=== PATIENT | male | born 1945 | race Caucasian/White ===

== ENCOUNTER 2016-12-27 10:19 | Inpatient (IN) | payer MEDICARE, OTHER ==
[~2016-12-27] VITALS: Ht 182.9 cm; Wt 121.8 kg
[2016-12-27 10:28] VITALS: BP 223/106; PULSE 66; RESP 16; O2SAT 97
--- NOTE | 2016-12-27 10:55 | ED.REPORT ---
HPI- Male Date of Service Dec 27, 2016 ED Provider: History of Present Illness: started 1 week ago, went horseback riding and pain around anus has been present since riding. no drainage. had abscess at same site 5 years ago. opened by general surgery no drainage but increased a few days later. came to ER then and placed on bactrim. resolved. primary care is audelia mora. pain is 0 at rest, 2 at walking. Nursing Notes Stated Complaint: ABSCESS Chief Complaint: General Complaint Nursing Notes Reviewed: Yes Allergies: Coded Allergies: No Known Allergies (Unverified Allergy, Unknown, 12/27/16) General Time Seen by MD: 10:55 Chief Complaint Other (fistula vs abscess) Hx Obtained From: Patient Onset Occurred: 1 week ago Symptom Duration: Since onset Past Medical History Past Medical History Denies: Asthma, Diabetes mellitus Past Surgical History triple bypass 16 years ago Smoking History Never Smoker Social History Alcohol Use: "Social" Drug Use: Denies drug use Occupation lives with 3 story house retired 12/27/2016 Ambulatory Status Independent Review of Systems Basic Review of Systems Eyes: Vision NL, No discharge Hematologic: No bleeding, No bruising Psychiatric: Normal thought content Physical Exam Physical Exam Notes: patient reports a long hx of white coat hypertension. Stes has checked blood pressure many times, normal when not in an office. Initial Vital Signs Vital Signs (First) Date Time Temp Pulse Resp B/P Pulse Ox O2 Delivery O2 Flow Rate FiO2 12/27/16 10:28 36 66 16 223/106 97 Room Air Initial VS: Reviewed, Vital signs abnormal General/Constitutional: Well-developed, Well-nourished Head / Eyes: Atraumatic, Normocephalic, PERRL ENT: Mucous membranes moist, Conjunctiva normal, No scleral icterus Neck: Supple, Non-tender, Full range of motion Respiratory: Breath sounds normal, Clear to auscultation, No respiratory distress Cardiovascular: Regular rate & rhythm, Heart sounds normal, Intact distal pulses Abdomen / GI: Soft, Non-tender, No guarding, No rebound, No distention Back: No CVA tenderness Lymphatic: No lymphadenopathy Extremities: Vascular intact, Neuro intact, No swelling, No tenderness Skin: Warm, Dry, No cyanosis Neurologic: Alert, Oriented, Nonfocal Psychiatric: Mood/affect normal, Behavior normal, Normal thought content Perineum: Positive: Erythema present, Swelling present, Tenderness present hard palpable site anterior to anus General/Constitutional: Awake, Alert, No acute distress, Well appearing, Well developed, Well hydrated Abdomen: Atraumatic, Soft, Non-tender, McBurney's non-tender ENT: Atraumatic, Airway patent, Mucous membranes moist Respiratory / Chest: Atraumatic, Breath sounds NL, Breath sounds = bilat, No respiratory distress Cardiovascular: Heart rate NL, Regular rhythm, Heart sounds NL Rectum / Perineum: Sphincter tone NL hard palpable site anterior to anus with what appears to streaking to anus on right side. Interpretation & Diagnostics Interpretation & Diagnostics: PROCEDURE: US EXTREMITY SONOGRAM LIMITED (35605) INDICATIONS: perianal abscess, R or L side, plz danis site TECHNIQUE: Real-time scanning was performed of the perirectal , with image documentation. COMPARISON: [facility], CT, CT ABD PELVIS W CON, 12/27/2016, 14:17. FINDINGS: A at the site marked with an X. on the skin at approximately 1 cm beneath the surface of the skin is a 5 x 3 x 2 cm area of hypoechoic substance thought to be complex fluid, likely an abscess. Usual prominent vasculature however is seen around an abscess is not reciated. IMPRESSION: Complex fluid, suspected to be abscess but without the prominent blood flow usually seen. This is marked in the midline just posterior to the rectum. Dictated by: John Paul Stanford M.D. on 12/27/2016 at 19:02 Approved by: John Paul Stanford M.D. on 12/27/2016 at 19:05 Lab Results Interpretation Result Diagram: 12/27/16 1125 12/27/16 1125 Test 12/27/16 11:25 White Blood Count 12.3th/mm3 (3.8-10.1) Red Blood Count 5.12mil/mm3 (4.40-5.80) Hemoglobin 16.4g/dL (13.8-17.2) Hematocrit 47.3% (41.0-50.0) Mean Corpuscular Volume 92.4fL (81-100) Mean Corpuscular Hemoglobin 32.0pg (27.0-35.0) Mean Corpuscular Hemoglobin Concent 34.7% (32.0-37.0) Red Cell Distribution Width 12.6% (12.3-15.4) Platelet Count 222bil/L (150-400) Neutrophils (%) (Auto) 82.2% (40-74) Lymphocytes (%) (Auto) 7.6% (14-46) Monocytes (%) (Auto) 9.4% (4-12) Eosinophils (%) (Auto) 0.3% (0-5) Basophils (%) (Auto) 0.2% (0-3) Sodium Level 139mEq/L (134-144) Potassium Level 4.2mEq/L (3.5-5.2) Chloride Level 103mEq/L (97-108) Carbon Dioxide Level 24mmol/L (18-29) Blood Urea Nitrogen 18mg/dL (8-27) Creatinine 0.81mg/dL (0.76-1.27) Estimat Glomerular Filtration Rate 100mL/min (>59) Glucose Level 123mg/dL (60-99) Lactic Acid Level 1.2mmol/L (0.4-2.0) Calcium Level 9.2mg/dL (8.5-10.1) Total Bilirubin 1.0mg/dL (0.0-1.2) Aspartate Amino Transf (AST/SGOT) 18U/L (0-50) Alanine Aminotransferase (ALT/SGPT) 30U/L (0-44) Alkaline Phosphatase 84U/L (25-160) Total Protein 6.4g/dL (6.4-8.4) Albumin 4.0g/dL (3.4-5.0) Lab Results Interpretation: TECHNIQUE: After the administration of oral and intravenous contrast, 5 mm thick sections acquired from the diaphragms to the symphysis. 5 mm thick coronal and sagittal reformats were performed. For radiation dose reduction, the following was used: automated exposure control, adjustment of mA and/or kV according to patient size. COMPARISON: [facility], CT, PELVIS W CONTRAST, 08/16/2010, 12:39. FINDINGS: Image quality: Excellent. ABDOMEN: Lung bases: Lung bases are clear. Heart size is normal. Solid organs: Liver and spleen are normal in size and enhancement. There are 2 cysts in the left lobe of the liver and 2 small areas too small to characterize inferiorly in the right lobe, likely cysts. Gallbladder is within normal limits. Biliary system is non-dilated. Pancreas enhances normally there is a 12 mm right and 10 mm left adrenal nodule.. Kidneys are normal in size and enhancement, without hydronephrosis. Peritoneum and bowel: Stomach, small bowel, and colon loops are normal in caliber and wall thickness. No free fluid or air. Nodes and vessels: No retroperitoneal or mesenteric adenopathy. Aorta and inferior vena cava are normal in caliber. Miscellaneous: No ventral hernias. PELVIS: Genitourinary: Bladder wall thickness is normal. Mild prostate enlargement. Miscellaneous: No inguinal hernias or adenopathy. Just posterior to the rectum in the midline is a fluid collection that appears to be suspicious for potential abscess. It measures 42 x 14 x 40 mm. Bones: No suspicious bony lesions. No vertebral body compression fractures. IMPRESSION: Fluid collection just posterior to the rectum. A perirectal abscess is suspected. Bilateral small adrenal nodules of doubtful significance. Hepatic cysts. Dictated by: John Paul Stanford M.D. on 12/27/2016 at 14:23 Approved by: John Paul Stanford M.D. on 12/27/2016 at 14:31 Re-Eval/Medical Decision Med Decision/Clinical Course 71 year old male present to the ER for evualation of pain around the anus. Pain has been ongoing for a week, starting after horseback riding. Patient states had similiar episode [address] does indicate an abscess. Dr. Marti is notified and he presents to the ER with plans to aspirate. Unable to get any fluid out. . Initially patient was to go home but now will stay with OR intervention planned for tomorrow. Discharge & Departure Impression: Primary Impression: Perirectal abscess Disposition: ADMITTED TO HOSPITAL Referrals: Audelia Mora MD (PCP) EDSupervising Provider for APC: Jose Mckeon MD copies to: Audelia Mora MD, Sue ARNP Dec 27, 2016 10:55
[2016-12-27] MEDS ORDERED: 0.9% Sodium Chloride 1,000 ML IV ONE ×2 (11:10→17:25)
[2016-12-27] MEDS ORDERED: Iohexol 300 mg/mL 30 mL Inj PO ONE (11:20)
[2016-12-27 11:40] LABS: BASOPHILS % (AUTO) 0.2 % (0-3); EOSINOPHILS % (AUTO) 0.3 % (0-5); MONOCYTES % (AUTO) 9.4 % (4-12); Mean Corpuscular Volume 92.4 fL (81-100); NEUTROPHILS % (AUTO) 82.2 % (40-74); Platelet Count 222 bil/L (150-400)
--- NOTE | 2016-12-27 14:33 | DRSVH ---
PROCEDURE: CT ABDOMEN AND PELVIS WITH CONTRAST (PNL-7102) INDICATIONS: abscess vs anal fistula TECHNIQUE: After the administration of oral and intravenous contrast, 5 mm thick sections acquired from the diap hragms to the symphysis. 5 mm thick coronal and sagittal reformats were performed. For radiation do se reduction, the following was used: automated exposure control, adjustment of mA and/or kV accordi ng to patient size. COMPARISON: [facility], CT, PELVIS W CONTRAST, 08/16/2010, 12:39. FINDINGS: Image quality: Excellent. ABDOMEN: Lung bases: Lung bases are clear. Heart size is normal. Solid organs: Liver and spleen are normal in size and enhancement. There are 2 cysts in the left lo be of the liver and 2 small areas too small to characterize inferiorly in the right lobe, likely cyst s. Gallbladder is within normal limits. Biliary system is non-dilated. Pancreas enhances normally t here is a 12 mm right and 10 mm left adrenal nodule.. Kidneys are normal in size and enhancement, wi thout hydronephrosis. Peritoneum and bowel: Stomach, small bowel, and colon loops are normal in caliber and wall thickness . No free fluid or air. Nodes and vessels: No retroperitoneal or mesenteric adenopathy. Aorta and inferior vena cava are no rmal in caliber. Miscellaneous: No ventral hernias. PELVIS: Genitourinary: Bladder wall thickness is normal. Mild prostate enlargement. Miscellaneous: No inguinal hernias or adenopathy. Just posterior to the rectum in the midline is a f luid collection that appears to be suspicious for potential abscess. It measures 42 x 14 x 40 mm. Bones: No suspicious bony lesions. No vertebral body compression fractures. IMPRESSION: Fluid collection just posterior to the rectum. A perirectal abscess is suspected. Bilateral small adrenal nodules of doubtful significance. Hepatic cysts. Dictated by: John Paul Stanford M.D. on 12/27/2016 at 14:23 Approved by: John Paul Stanford M.D. on 12/27/2016 at 14:31
[2016-12-27] MEDS ORDERED: Lidocaine 2%-Epi 1:100,000 20 mL Inj ONE (14:44)
[2016-12-27] MEDS ORDERED: Clindamycin Inj 900 MG in IV Premix 1 EACH IV ONE (17:25)
[2016-12-27] MEDS ORDERED: metroNIDAZOLE Inj 1,000 MG in IV Premix 1 EACH IV ONE (17:25)
[2016-12-27] MEDS ORDERED: Alum-Mag Hydrox-Simeth 30 mL Suspension PO PRN (18:15)
[2016-12-27] MEDS ORDERED: Ondansetron 2 mg/mL 2 mL Inj IVPUSH PRN ×2 (18:15→18:30)
[2016-12-27] MEDS: Vancomycin Dose per Pharmacist XX SCH (18:25)
--- NOTE | 2016-12-27 18:27 | ER ---
[address] [address] EMERGENCY DEPARTMENT REPORT PATIENT: EUGENIO VO : 1945 MR#: [id number] ADMIT: 12/27/2016 JOB ID: [id number] DATE OF SERVICE: 12/27/2016 CHIEF COMPLAINT: Perirectal abscess. HISTORY OF PRESENT ILLNESS: The patient is a 71-year-old male who presented to the emergency department today due to perirectal discomfort. Patient reports riding horseback approximately a week ago. This was followed by gradual increasing discomfort in the perianal region, feels like he's sitting on a golf ball. The patient has a history of perianal abscess approximately five years ago. The patient went to [facility] and it was I and D'd by a general surgeon but no drainage was encountered. However , it spontaneously drained a few days later. The patient was treated with Bactrim at the time and it gradually resolved. Workup in the emergency department today showed an elevated white blood count of 12.[address] scan finding that shows a fluid collection posterior to the rectum measuring 42 x14 x 40 mm. A perirectal abscess is suspected. Discussion with the patient as to taking him to the operating room for examination under anesthesia and possible I and D. However, he declined and wanted to have aspiration done in the emergency department. PAST MEDICAL HISTORY: Perianal abscess five years ago and history of CABG. MEDICATIONS: Include: 1. Atenolol. 2. A cholesterol medication. ALLERGIES: None. SOCIAL HISTORY: The patient is a retired dentist. He lives in the [place] area. He is , has four children. FAMILY HISTORY: Positive for colon cancer. REVIEW OF SYSTEMS: Positive for the perirectal pain for the past week or so. PHYSICAL EXAMINATION: The patient is currently in the emergency department [facility] in no acute distress. His BMI is 35.3. His blood pressure is 36, blood pressure 223/106. Pulse is 66, respirations 16. Head is normocephalic, atraumatic. There is no scleral icterus. Neck is supple. Heart is regular rate. Lungs are clear. Abdomen is obese, but soft and nontender. Extremities show no clubbing and no cyanosis. The examination of his perianal region shows induration along the right anterior as well as the left anterior aspect of the anus. There is no tenderness to the posterior aspect of the anus. There is no obvious drainage and no clear erythema. The patient is slightly tender along the indurated area of the right anterior and left anterior aspect of the anus. Digital exam did not show any palpable masses. PROCEDURE: After informed consent, we proceeded to perform aspiration. The perianal region was then prepped and draped in the usual sterile fashion using Betadine. Local anesthetic was injected and using an 18-gauge needle, multiple aspirations of the right anterior and left anterior aspect of the perianal region were performed without successfully hitting an abscess cavity. After multiple aspiration attempts, the procedure was terminated. Patient tolerated the procedure well. No incision and drainage was performed in the ED. ASSESSMENT: This is a 71-year-old male with a history of perianal abscess five years ago, who now has a recurrent perianal or perirectal abscess. The patient was offered hospitalization with IV antibiotics and also an examination under anesthesia in the operating room. The patient has declined. I will talk to Brittany Peña about his case. We will have the patient do sitz baths and get him started on p.o. antibiotics. The patient is encouraged to return for a recheck in the next 1-2 days. Again, I did offer to take him to the operating room for a better examination under anesthesia. However, he has currently declined. After additional discussion, pt finally agreed to be admitted. We will proceed to examination under anesthesia tomorrow. MARISA
[2016-12-27] MEDS ORDERED: HYDROmorphone 1 mg/mL Inj IVPUSH PRN (18:30)
[2016-12-27] MEDS ORDERED: Vancomycin Inj 2,250 MG in 0.9% Sodium Chloride 500 ML IV ONE (18:35)
--- NOTE | 2016-12-27 18:56 | PCM.HPMED ---
Subjective Date of Service Dec 27, 2016 Primary Provider: Admitting Physician: Timothy Crooks MD Primary Care Physician: Audelia Mora MD Attending Physician: Timothy Crooks MD Chief Complaint: Perirectal pain History of Present Illness: 79-year-old male with no significant past history, CABG 16 years ago, had full cardiac workup year ago her normal, history of perirectal abscess 5 years ago, patient required I&D, treated with Bactrim. pt presented today with perirectal swelling and pain. Patient went to horseback riding a week ago, since then started having perirectal pain and swelling, progressively worsened. he denied fever, chills at home, denied any changes of bowel habits. Having regular stools, denied bloody or black stools ever. Patient had good appetite no nausea or vomiting. Denied any urinary complaints, no stool incontinence. Patient denied sick contact, MSM. 5yrs ago, etiology was also unclear as to why pt developed abscess ED initial VS [id number], CT showed fluid collection just posterior to the rectum, suspected perirectal abscess. Surgery was consulted attempted bedside aspiration but failed to obtained sample or drainage. Recommended I&D in OR tomorrow Review of Systems: Pertinent positives as noted in history of present illness. All other systems were reviewed and are negative Allergies Coded Allergies: No Known Allergies (Unverified Allergy, Unknown, 12/27/16) Home Medications No active medicine PMH Hypertension white coat Surgical History CABG 16 years ago, no complication from surgery or anesthesia Family History No history of CAD Social History Hx Alcohol Use: Yes (A LITTLE BIT ) Hx Substance Use: Yes (OCCASIOINAL) Smoking Status: Never Smoker Exam Vital Signs Vital Sign - Last Date Time Temp Pulse Resp B/P Pulse Ox O2 Delivery O2 Flow Rate FiO2 12/27/16 10:28 36 66 16 223/106 97 Room Air Exam NAD, comfortably laying down on the bed no JVD, MMM, no LAD RRR, nl s1, s2 no mrg CTAB, no w,c S,ND,NT,normoactive BS+ warm, no edema, pulses 2/2 recta: swelling, tender no fluctuance around 7oclock Lab and Diagnostics Result Diagram: 12/27/16 1125 12/27/16 1125 X-Rays, CTs and MRIs PROCEDURE: CT ABDOMEN AND PELVIS WITH CONTRAST ([id number]) INDICATIONS: abscess vs anal fistula TECHNIQUE: After the administration of oral and intravenous contrast, 5 mm thick sections acquired from the diaphragms to the symphysis. 5 mm thick coronal and sagittal reformats were performed. For radiation dose reduction, the following was used : automated exposure control, adjustment of mA and/or kV according to patient size. COMPARISON: [facility], CT, PELVIS W CONTRAST, 08/16/2010, 12: 39. FINDINGS: Image quality: Excellent. ABDOMEN: Lung bases: Lung bases are clear. Heart size is normal. Solid organs: Liver and spleen are normal in size and enhancement. There are 2 cysts in the left lobe of the liver and 2 small areas too small to characterize inferiorly in the right lobe, likely cysts. Gallbladder is within normal limits. Biliary system is non-dilated. Pancreas enhances normally there is a 12 mm right and 10 mm left adrenal nodule.. Kidneys are normal in size and enhancement, without hydronephrosis. Peritoneum and bowel: Stomach, small bowel, and colon loops are normal in caliber and wall thickness. No free fluid or air. Nodes and vessels: No retroperitoneal or mesenteric adenopathy. Aorta and inferior vena cava are normal in caliber. Miscellaneous: No ventral hernias. PELVIS: Genitourinary: Bladder wall thickness is normal. Mild prostate enlargement. Miscellaneous: No inguinal hernias or adenopathy. Just posterior to the rectum in the midline is a fluid collection that appears to be suspicious for potential abscess. It measures 42 x 14 x 40 mm. Bones: No suspicious bony lesions. No vertebral body compression fractures. IMPRESSION: Fluid collection just posterior to the rectum. A perirectal abscess is suspected. Bilateral small adrenal nodules of doubtful significance. Hepatic cysts. Assessment & Plan Acute, active Perirectal abscess, triggered by episode of horseback riding, possibley due to minor skin injury. no SIRS, pt appeared nontoxic -appreciate surgical management -s/p clindamycin, flagyl, will continue flagyl and vancomycin, should cover anaerobes, strep, staph, -trend fever curve, awaits BCX, -MRSA swab elevated HTN, likely due to whitecoat, pain, diet controlled at baseline -monitor for now chronic,stable CAD s/p CABG, remote, stable, euvolemic on exam dispo:Patient will be admitted with inpatient status with expectation of inpatient therapy for more than 2 midnights diet:general, NPO after MN dvt ppx:SCD Full code Time spent 65min Jessica Nolan MD Dec 27, 2016 18:55
--- NOTE | 2016-12-27 19:06 | DRSVH ---
PROCEDURE: US EXTREMITY SONOGRAM LIMITED (83170) INDICATIONS: perianal abscess, R or L side, plz danis site TECHNIQUE: Real-time scanning was performed of the perirectal , with image documentation. COMPARISON: [facility], CT, CT ABD PELVIS W CON, 12/27/2016, 14:17. FINDINGS: A at the site marked with an X. on the skin at approximately 1 cm beneath the surface of th e skin is a 5 x 3 x 2 cm area of hypoechoic substance thought to be complex fluid, likely an abscess. Usual prominent vasculature however is seen around an abscess is not reciated. IMPRESSION: Complex fluid, suspected to be abscess but without the prominent blood flow usually seen. This is marked in the midline just posterior to the rectum. Dictated by: John Paul Stanford M.D. on 12/27/2016 at 19:02 Approved by: John Paul Stanford M.D. on 12/27/2016 at 19:05
[2016-12-27 19:11] VITALS: BP 149/75; PULSE 66; RESP 16; O2SAT 97
[2016-12-27 19:34] VITALS: BP 168/84; PULSE 73; RESP 18; O2SAT 97
[2016-12-27] MEDS ORDERED: ALPR0.25 PO (22:31)
[2016-12-27] MEDS ORDERED: ATEN25TA PO (22:31)
[2016-12-27] MEDS ORDERED: ASPI-973 PO (22:31)
[2016-12-27] MEDS ORDERED: EZET1TAB7 PO (22:31)
[2016-12-27] MEDS ORDERED: LISI40TA PO (22:31)
--- NOTE | 2016-12-27 22:49 | PCM.CONPHA ---
Assessment/Plan Assessment/Plan Pharmacy Kinetic Dosing Vancomycin Indication: PERORECTAL ABSCESS Vanc goal trough: 15-20 mcg/mL Pt wt: 118.18 kg Other ABX: FLAGYL Cultures: Blood PENDING SCr: 0.81 mg/dL Assessment/Plan: - Loading dose of Vancomycin 2250 mg given in ED for (20 mg/kg dosing) -Will continue Vancomycin 1750 mg Q12H (15 mg/kg dosing) with trough scheduled prior to 4th dose on 12/29/16 @0930 Pharmacy appreciates consult and will continue to monitor. Caren Toro PharmD Dec 27, 2016 22:49
[2016-12-28] VITALS (10 sets, daily range): BP systolic 127–163; BP diastolic 73–88; PULSE 59–89; RESP 10–20; O2SAT 95–100
[2016-12-28] MEDS: metroNIDAZOLE Inj 1,000 MG in IV Premix 1 EACH IV SCH ×2 (02:01→07:53)
--- NOTE | 2016-12-28 03:46 | NUR ---
Admit Patient arrived on unit at 1900, able to transfer self on to bed. A&O, able to make needs known. Oriented to room, ABX hanging. Pharmacy insuring that second ABX bag be hung. All belongings placed in closet. Denies pain at this time. Will continue to monitor
[2016-12-28 03:50] LABS: BASOPHILS % (AUTO) 0.3 % (0-3); EOSINOPHILS % (AUTO) 0.9 % (0-5); MONOCYTES % (AUTO) 11.7 % (4-12); Mean Corpuscular Hemoglobin 32.3 pg (27.0-35.0); Mean Corpuscular Volume 93.3 fL (81-100); NEUTROPHILS % (AUTO) 72.8 % (40-74); Platelet Count 198 bil/L (150-400)
[2016-12-28 04:23] LABS: Magnesium 1.8 mg/dL (1.6-2.6); Phosphorus 3.6 mg/dL (2.5-4.9)
[2016-12-28] MEDS: Vancomycin Dose per Pharmacist XX SCH (08:30)
[2016-12-28] MEDS ORDERED: metroNIDAZOLE Inj 1,000 MG in IV Premix 1 EACH IV SCH (08:30)
--- NOTE | 2016-12-28 09:29 | PCM.PNMED ---
Subjective Date of Service Dec 28, 2016 Subjective pt remained stable tentative plan for surgery by today US showed complex fluid 5 x 3 x 2 cm 1cm beneath the skin Exam Vital Signs Vital Sign - Last Date Time Temp Pulse Resp B/P Pulse Ox O2 Delivery O2 Flow Rate FiO2 12/28/16 06:15 36.9 89 16 141/79 96 Room Air Intake and Output 12/27/16 12/27/16 12/28/16 Cumulative From/Thru 15:00 23:00 07:00 12/27/16 10:28 - 12/28/16 06:15 Intake Total 1000 ml 1779 ml 2779 ml Output Total 950 ml 950 ml Balance 1000 ml 829 ml 1829 ml Intake Oral 275 ml 275 ml IV Total 1000 ml 1504 ml 2504 ml Output Urine Total 950 ml 950 ml # Bowel Movements 0 0 Exam NAD, comfortably laying down on the bed no JVD, MMM, no LAD RRR, nl s1, s2 no mrg CTAB, no w,c S,ND,NT,normoactive BS+ warm, no edema, pulses 2/2 recta: swelling, tender no fluctuance around 7oclock IVs and Medications Medications Reviewed: Medications were reviewed in detail Lab and Diagnostics Result Diagram: 12/28/16 0330 12/28/16 0330 X-Rays, CTs and MRIs PROCEDURE: CT ABDOMEN AND PELVIS WITH CONTRAST ([id number]) INDICATIONS: abscess vs anal fistula TECHNIQUE: After the administration of oral and intravenous contrast, 5 mm thick sections acquired from the diaphragms to the symphysis. 5 mm thick coronal and sagittal reformats were performed. For radiation dose reduction, the following was used : automated exposure control, adjustment of mA and/or kV according to patient size. COMPARISON: [facility] [place], CT, PELVIS W CONTRAST, 08/16/2010, 12: 39. FINDINGS: Image quality: Excellent. ABDOMEN: Lung bases: Lung bases are clear. Heart size is normal. Solid organs: Liver and spleen are normal in size and enhancement. There are 2 cysts in the left lobe of the liver and 2 small areas too small to characterize inferiorly in the right lobe, likely cysts. Gallbladder is within normal limits. Biliary system is non-dilated. Pancreas enhances normally there is a 12 mm right and 10 mm left adrenal nodule.. Kidneys are normal in size and enhancement, without hydronephrosis. Peritoneum and bowel: Stomach, small bowel, and colon loops are normal in caliber and wall thickness. No free fluid or air. Nodes and vessels: No retroperitoneal or mesenteric adenopathy. Aorta and inferior vena cava are normal in caliber. Miscellaneous: No ventral hernias. PELVIS: Genitourinary: Bladder wall thickness is normal. Mild prostate enlargement. Miscellaneous: No inguinal hernias or adenopathy. Just posterior to the rectum in the midline is a fluid collection that appears to be suspicious for potential abscess. It measures 42 x 14 x 40 mm. Bones: No suspicious bony lesions. No vertebral body compression fractures. IMPRESSION: Fluid collection just posterior to the rectum. A perirectal abscess is suspected. Bilateral small adrenal nodules of doubtful significance. Hepatic cysts. Assessment & Plan Acute, active Perirectal abscess, triggered by episode of horseback riding, possibley due to minor skin injury. no SIRS, pt appeared nontoxic -appreciate surgical management today -s/p clindamycin, flagyl, will continue flagyl q6h and vancomycin, should cover anaerobes, strep, staph, -trend fever curve, awaits BCX, -MRSA swab -placed ID consult, follow up with tomorrow Chronic,stable CAD s/p CABG, remote, stable, euvolemic on exam Elevated HTN, likely due to whitecoat, pain, diet controlled at baseline, initially HTN resolved, monitor for now dispo:likely 1-2more days based on surgical course diet:general, NPO after MN dvt ppx:SCD Full code VTE Mechanical Devices: Intermittant Pneumatic CD Time spent 35min Jessica Nolan MD Dec 28, 2016 09:29
[2016-12-28] MEDS: Vancomycin Inj 1,750 MG in 0.9% Sodium Chloride 500 ML IV SCH ×3 (10:20→22:31)
--- NOTE | 2016-12-28 10:45 | NUR ---
[facility] signed
[2016-12-28] MEDS ORDERED: Lactated Ringer's 1,000 ML IV ONE (12:20)
[2016-12-28] MEDS ORDERED: Bupivacaine-MPF 0.5% W/EPI 30 mL Inj INFILTRATE ONE (12:38)
[2016-12-28] MEDS ORDERED: Lactated Ringer's 500 ML IV PRN (12:43)
[2016-12-28] MEDS ORDERED: Lactated Ringer's 1,000 ML IV SCH (12:43)
--- NOTE | 2016-12-28 12:43 | PCM.HPANE ---
Patient Data Surgeon Admitting Provider:Jessica Nolan MD Attending Provider:Jessica Nolan MD Primary Care Physician:Audelia Mora MD Other Provider:Tha Melton Anesthesia Reason for Visit Perirectal Abscess Ht/WT & BMI Height (Feet): 6 Height (Inches): 0.00 Weight (Kilograms): 121.800 Body Mass Index 36.37 Allergies Coded Allergies: No Known Allergies (Unverified Allergy, Unknown, 12/27/16) Past Anesthesia History Anesthesia History: Denies:: Abnormal Airway, Anesthesia Reactions, Difficult Intubation, Fam Anesthesia Reaction, Fam Malignant Hypertherm, Malignant Hyperthermia Diabetes History Hx Diabetes?: No Medications Reported Medications Alprazolam (Xanax)0.25 Mg Tablet0.25 Mg PO TID PRN For Anxiety Ref 0 12/27/16 Aspirin 81 Mg [id number] Mg PO DAILY Ref 0 12/27/16 Ezetimibe/Simvastatin 10-40 mg (Vytorin 10-40 mg)1 Each Tablet1 Tablet PO DAILY 12/27/16 Atenolol 25 Mg [id number] Mg PO DAILY #30 TABLET Ref 0 12/27/16 Lisinopril 40 Mg [id number] Mg PO DAILY 30 Days Ref 0 12/27/16 History History of ENT Problems?: Yes (See below) HEENT History: Positive for:: Cataracts Denture Type: None Teeth Condition: Within Normal Limits Hx of Heart Problems?: Yes (See below) Cardiovascular History: Positive for:: Cardiac Surgery (triple bypass years ago) Hypertension Denies:: Congestive Heart Failure Other History/Comments No CP; greater than 4 mets. Recent negative stress test Hx of Respiratory Problem?: No Respiratory History: Denies:: Asthma COPD Chest Surgery Cough Dyspnea Emphysema Hemoptysis Oxygen Administration Pneumonia Pulmonary Embolism Tuberculosis Use of C-PAP Machine Use of Inhalers / NEBS Hx Neurologic Problems?: No Hx of GI Problems?: No Hx of Problems?: No Hx Musculoskeletal Problems?: No Hx of Psycho/Social Problems?: No Hx Surgeries?: No History Blood Transfusions: Positive for:: Accept Blood Products? Denies:: Blood Transfusions Hx Diabetes: No Hx Alcohol Use: YesAlcoholic Drinks Per Day: one a dayHx Substance Use: No Smoking Status: Never Smoker Have You Smoked inLast 12 mo: No Stop/Bang Treated for Sleep Apnea?: No Do You Have a CPAP Machine?: No S-Snoring: Do You Snore Loudly: No T-Tired: feel tired, fatigued: No O-Obsered: Observed not breath: No P-Blood Pressure: treated: Yes B- Body Mass Index > 35 kg/m2: Yes A- Age over 50: Yes N- Neck Large Circumference: No G- Gender Male: Yes Risk Assessment Category Category 1A: Patient has history of documented sleep apnea, and HAS NOT received any narcotic, sedative or anesthesia administration during this stay. Category 1B: Patient has history of documented sleep apnea, and HAS received any narcotic , sedative or anesthesia administration during this stay Category 2: Patient has SUSPECTED Obstructive Sleep Apnea, and HAS received any narcotic , sedative or anesthesia administration during this stay. Category 3: Patient has SUSPECTED Obstructive Sleep Apnea and HAS NOT received narcotic, sedative or anesthesia administration during this stay. Category 4: Outpatient in Procedural Areas with known sleep apnea or who screen positive for High Risk via the STOP/BANG questionnaire. Exam Exam Vital Signs Vital Signs Date Time Temp Pulse Resp B/P Pulse Ox O2 Delivery O2 Flow Rate FiO2 12/28/16 06:15 36.9 89 16 141/79 96 Room Air General Appearance: Alert, Oriented X3 HEENT/AIRWAY: MP 2, Neck Movement (FROM) Lungs: Clear to Auscultation, Clear to Percussion Heart: Exam Unremarkable, Regular Rate/Rhythm Meds/Labs/Diagnostics Admission Meds Current Medications Sodium Chloride (Normal Saline) 1,000 ml @ 0 mls/hr Q0M ONCE IV Last administered on 12/27/16 11:45; Start 12/27/16 at 11:10; Stop 12/27/16 at 11:12 ; Status DC Iohexol (Omnipaque-300 Inj) 9,000 mg ONCE ONCE PO Last administered on 11:45; Start 12/27/16 at 11:20; Stop 12/27/16 at 11:21; Status DC Lidocaine/ Epinephrine 1 ml 1 ml STK-MED ONCE .ROUTE Last administered on 14:44; Start 12/27/16 at 14:44; Stop 12/27/16 at 14:48; Status DC Metronidazole/ Sodium Chloride 1000 mg/Premix 200 ml @ 200 mls/hr ONCE ONCE IV Last administered on 12/27/16 17:25; Start 12/27/16 at 17:25; Stop at 18:24; Status DC Clindamycin Phosphate/ Dextrose 900 mg/ Premix 50 ml @ 100 mls/hr ONCE ONCE IV Last administered on 12/27/16 18:25; Start 12/27/16 at 17:25; Stop at 17:54; Status DC Sodium Chloride 1,000 ml @ 0 mls/hr Q0M ONCE IV Last administered on 17:25; Start 12/27/16 at 17:25; Stop 12/27/16 at 17:26; Status DC Vancomycin HCl 2250 mg/Sodium Chloride 500 ml @ 250 mls/hr OT ONCE IV Last administered on 12/27/16 22:10; Start 12/27/16 at 18:35; Stop 12/27/16 at 20:34 ; Status DC Metronidazole/ Sodium Chloride 1000 mg/Premix 200 ml @ 200 mls/hr Q6H IV Last administered on 12/28/16 07:53; Start 12/28/16 at 01:00 Vancomycin HCl/ Sodium Chloride (Vancocin Inj/ Normal Saline) 500 ml @ 333.333 mls/hr Q12H IV Last administered on 12/28/16 10:20; Start 12/28/16 at 10:00 Atenolol (Tenormin) 25 mg DAILY PO Last administered on 12/28/16 08:58; Start 12/28/16 at 08:30 Lisinopril (Zestril) 40 mg DAILY PO Last administered on 12/28/16 08:58; Start 12/28/16 at 08:30 Labs Test 12/27/16 11:25 12/28/16 03:30 Lactic Acid Level 1.2mmol/L (0.4-2.0) White Blood Count 9.9th/mm3 (3.8-10.1) Red Blood Count 4.62mil/mm3 (4.40-5.80) Hemoglobin 14.9g/dL (13.8-17.2) Hematocrit 43.1% (41.0-50.0) Mean Corpuscular Volume 93.3fL (81-100) Mean Corpuscular Hemoglobin 32.3pg (27.0-35.0) Mean Corpuscular Hemoglobin Concent 34.6% (32.0-37.0) Red Cell Distribution Width 12.3% (12.3-15.4) Platelet Count 198bil/L (150-400) Neutrophils (%) (Auto) 72.8% (40-74) Lymphocytes (%) (Auto) 14.0% (14-46) Monocytes (%) (Auto) 11.7% (4-12) Eosinophils (%) (Auto) 0.9% (0-5) Basophils (%) (Auto) 0.3% (0-3) Sodium Level 140mEq/L (134-144) Potassium Level 4.1mEq/L (3.5-5.2) Chloride Level 103mEq/L (97-108) Carbon Dioxide Level 25mmol/L (18-29) Blood Urea Nitrogen 13mg/dL (8-27) Creatinine 0.79mg/dL (0.76-1.27) Estimat Glomerular Filtration Rate 103mL/min (>59) Glucose Level 105mg/dL (60-99) Calcium Level 8.4mg/dL (8.5-10.1) Phosphorus Level 3.6mg/dL (2.5-4.9) Magnesium Level 1.8mg/dL (1.6-2.6) Total Bilirubin 1.0mg/dL (0.0-1.2) Aspartate Amino Transf (AST/SGOT) 17U/L (0-50) Alanine Aminotransferase (ALT/SGPT) 24U/L (0-44) Alkaline Phosphatase 72U/L (25-160) Total Protein 5.6g/dL (6.4-8.4) Albumin 3.5g/dL (3.4-5.0) Procalcitonin 0.05ng/mL (0.00-0.08) Plan Impression Patient chart reviewed, patient interviewed and anesthestic plan with risks, benefits, and alternatives discussed, and informed consent obtained. ASA Physical Status: ASA2 Mod Systemic Disease Anesthetic Plan: GA Bene/Risks/Altern/Consents: Yes HP Complete Prior to Induction: Yes John Paul Dave MD Dec 28, 2016 11:06
[2016-12-28] MEDS ORDERED: HYDROmorphone 2 mg/mL Inj ONE (12:44)
[2016-12-28] MEDS ORDERED: Propofol 10,000 mCg/mL 20 mL Inj ONE (12:44)
[2016-12-28] MEDS ORDERED: fentaNYL-PF 50 mCg/mL 2 mL Inj ONE (12:44)
[2016-12-28] MEDS ORDERED: Dexamethasone 4 mg/mL Inj ONE (12:44)
[2016-12-28] MEDS ORDERED: EPHEDrine/NS 5 mg/mL 5 mL Syringe ONE (12:44)
[2016-12-28] MEDS ORDERED: Ondansetron 2 mg/mL 2 mL Inj ONE (12:44)
[2016-12-28] MEDS ORDERED: Glycopyrrolate 0.2 MG/ML 1mL Inj ONE (12:44)
[2016-12-28] MEDS ORDERED: Phenylephrine/NS 100 mCg/mL 10 mL Syringe IVPUSH ONE (12:44)
[2016-12-28] MEDS ORDERED: Ondansetron 2 mg/mL 2 mL Inj IVPUSH PRN (12:45)
[2016-12-28] MEDS ORDERED: Labetalol 5 mg/mL 4 mL Inj IV PRN (12:45)
[2016-12-28] MEDS ORDERED: fentaNYL-PF 50 mCg/mL 2 mL Inj IVPUSH PRN (12:45)
[2016-12-28] MEDS ORDERED: Phenylephrine 10,000 mCg/mL Inj IVPUSH PRN (12:45)
[2016-12-28] MEDS ORDERED: Atropine 0.4 mg/mL Inj IVPUSH PRN (12:45)
[2016-12-28] MEDS ORDERED: HYDROmorphone 1 mg/mL Inj IVPUSH PRN (12:45)
[2016-12-28] MEDS ORDERED: EPHEDrine Sulfate 50 mg/mL Inj IVPUSH PRN (12:45)
[2016-12-28] MEDS ORDERED: MetoCLOpramide 5 mg/mL 2 mL Inj IVPUSH PRN (12:45)
--- NOTE | 2016-12-28 13:12 | PCM.ANEP1 ---
Post Anesthesia PACU Phase 1 Assessment Vital Signs Vital Signs Date Time Temp Pulse Resp B/P Pulse Ox O2 Delivery O2 Flow Rate FiO2 12/28/16 06:15 36.9 89 16 141/79 96 Room Air Anesthetic Administered: GA Level of Alertness: Awake, talking HARMON's with Equal Strength: Yes Pain: No Nausea or Vomiting: No CV Function & Hydration Stable: Yes Airway Device: Endotrachial Tube Oxygen Delivery: Simple Mask Lungs: Clear to Auscultation, Clear to Percussion PACU Phase 2 Assessment Complications: No Follow up Care: No Patient Instructions Provided: N/A Comments See anesth record for PACU VS. PACU VSS John Paul Dave MD Dec 28, 2016 13:12
--- NOTE | 2016-12-28 13:45 | NUR ---
PostOp Pt comes back from OR. A&OX4, Denies pain, SOB, or CP. States pain slightly noted with activity. Packing and ABD pad over with minimal SS drainage. Will monitor drainage. Pt able to stand and ambulate with steady gait to bed. Denies any lightheadedness or dizziness. Pt wedding ring in bag at bedside table and pt advised to place back on finger jennie. Pt advised to use call light to get up for the first several times until staff confirms ambulation steadiness. Care continues.
--- NOTE | 2016-12-28 14:27 | OP ---
[address] [address] OPERATIVE REPORT PATIENT: EUGENIO VO : 1945 MR#: [id number] ADMIT: 12/27/2016 JOB ID: [id number] DATE OF SURGERY: SURGEON: Raúl Marti MD. REPAIR COIL WINDER: None. ANESTHESIA: General. PREOPERATIVE DIAGNOSIS(ES): Perirectal abscess. POSTOPERATIVE DIAGNOSIS(ES): Perirectal abscess. PROCEDURE: Examination under anesthesia, incision and drainage of an anterior midline perirectal abscess. INDICATION FOR PROCEDURE: The patient is a 71-year-old male with perianal pain and discomfort for the past week or so. A CT scan yesterday demonstrated findings suggestive of perirectal abscess. PRINCIPAL FINDING: This perirectal abscess was directly anterior midline in the perineal space between the anus and the scrotum. A 4 cm incision was made and copious amount of pus was evacuated. The pus was sent for cultures. The wound was packed open with a wet-to-dry NuGauze. PROCEDURE COURSE: The patient was brought to the operating table and was provided with general anesthesia. The patient had already received IV antibiotics and he was provided with SCDs. A time-out was performed. The patient's legs were then elevated into a lithotomy positioning, exposing his buttocks. The perianal region was prepped and draped in the usual sterile fashion. There was an obvious swelling and erythema along the anterior aspect of his anus at the anterior midline. Yesterday, an ultrasound did demonstrate a fluid collection directly underneath the anterior midline aspect in the perineum. Next, local anesthetic was injected, and using an 18-gauge needle, direct aspiration underneath this anterior midline spot demonstrated a brownish pus. Next, the aspiration site was then opened up using the scalpel, and a 4 cm longitudinal incision was made. Additional pus was evacuated. I was able to enlarge the incision to allow for total exposure of the abscess cavity. Hemostasis was verified. The abscess cavity did not seem to extend to the right or to the left. The abscess cavity did not communicate with the anal canal. After copious irrigation of the wound cavity, it was then subsequently packed with 1-inch Nu Gauze in a wet-to-dry fashion. The final length of the incision was 4 cm. A sterile dressing was then placed over the wound. By the end of procedure, needle counts and sponge counts were correct. The patient was then extubated and taken to the recovery room in stable satisfactory condition. COMPLICATION: None.
[2016-12-28] MEDS ORDERED: metroNIDAZOLE Inj 500 MG in IV Premix 1 EACH IV SCH (14:45)
[2016-12-28] MEDS: metroNIDAZOLE Inj 500 MG in IV Premix 1 EACH IV SCH ×2 (15:00→20:45)
--- NOTE | 2016-12-28 16:25 | NUR ---
Social Work: Initial Assessment D: EMR reviewed. Pt is a 71 y/o male admitted for perirectal abscess per H&P. SW met with pt at bedside to conduct initial assessment. Pt was alert and oriented x3. SW explained role and wrote phone number on white board. Pt's insurance is Medicare and [employer]. Pt's PCP is Audelia Mora MD. Pt gave verbal consent to contact daughter, Yulia Wu, for discharge planning. SW provided DPOA/advanced directive ppw and encouraged pt to provide a copy to the hospital once complete. Pt has no hx of HH or a SNF. Pt does not have LTC insurance or VA benefits. Pt is independent with ADLs. Pt does not use or own any DME. Pt drives. Pt is independent at baseline. Pt lives in a split level home with 3 steps to enter and 7 steps to the second level in [place] with his spouse Annelise Flores. Pt confirmed his daughter Yulia Wu will provide transport home via POV when pt is medically stable. SW does not anticipate any discharge needs at this time but will continue to follow if needs arise. A: Pt who is independent at baseline P: Pt confirmed his daughter Yulia Wu will provide transport home via POV when pt is medically stable. JUSTINE does not anticipate any discharge needs at this time but will continue to follow if needs arise. MELISA Medrano Addendum: 12/28/16 at 1629 by PAMELA KASPER SS Amended: Links added.
--- NOTE | 2016-12-28 18:46 | NUR ---
Incision / Ambulation Sx site reddened around outer edges. Packing in place with SS drainage present. Peripad used as secondary which has been chanbges a few times with scant amount of SS drainage. Pt up independently with steady gait after staff observed him safely ambulating several times. Care continues
[2016-12-29] MEDS: metroNIDAZOLE Inj 500 MG in IV Premix 1 EACH IV SCH ×2 (03:22→08:46)
[2016-12-29 04:38] VITALS: BP 169/84; PULSE 67; RESP 18; O2SAT 98
[2016-12-29 05:00] LABS: COLOR,URINE YELLOW (YELLOW)
[2016-12-29 05:01] LABS: APPEARANCE,URINE CLEAR (CLEAR,HAZY); OCCULT BLOOD,URINE NEGATIVE (NEGATIVE)
--- NOTE | 2016-12-29 05:20 | NUR ---
Activity Overnight pt denied pain. Saige rectal abscess dressing with packing and pad in place and changed prn by pt. Minimal drainage noted. UA sent per orders. Pt had last BM 2 days ago and denies constipation but took some prune juice last night. Up independently and steady on feet.
[2016-12-29 05:47] LABS: BASOPHILS % (AUTO) 0.1 % (0-3); EOSINOPHILS % (AUTO) 0 % (0-5); MONOCYTES % (AUTO) 7.7 % (4-12); Mean Corpuscular Volume 91.9 fL (81-100); NEUTROPHILS % (AUTO) 85.1 % (40-74); Platelet Count 233 bil/L (150-400)
[2016-12-29 06:17] LABS: Magnesium 2.1 mg/dL (1.6-2.6); Phosphorus 4.1 mg/dL (2.5-4.9)
[2016-12-29] MEDS: Vancomycin Dose per Pharmacist XX SCH (08:30)
[2016-12-29] MEDS ORDERED: Vancomycin Serum Trough XX ONE (09:30)
--- NOTE | 2016-12-29 09:31 | PCM.PNSURG ---
Subjective Date of Service: Dec 29, 2016 Date of Service: Dec 29, 2016 Visit Information: Reason for Visit Perirectal Abscess Surgery/Surgery Date incision and drainage of an anterior midline perirectal abscess Dec 28, 2016 Post-Op Day # 1 Date of Admission: Dec 27, 2016 at 18:30 Hospital Day # 2 Subjective: 71-year-old male postop day 1 status post incision and drainage of midline perirectal abscess. He reports doing well today. Wound packing was changed with wound care this morning. Patient tolerated change of dressing well. He is not experiencing any fever or chills, abdominal pain, nausea, or vomiting. Postop General: No Shortness of Breath, No Chest Pain Gastrointestinal: Tolerating Oral Feedings, No N/V, Passing Stool Pain Management: PO (Tylenol), IV Push (Dilaudid) Postop Activity: Ambulating Independently Objective Vital Sign- Last 8 Hours Date Time Temp Pulse Resp B/P Pulse Ox O2 Delivery O2 Flow Rate FiO2 12/29/16 04:38 36.4 67 18 169/84 98 Room Air Intake and Output- Last 8 Hour 12/29/16 Cumulative From/Thru 06:59 12/27/16 10:28 - 12/29/16 05:54 Intake Total 1290 ml 6519 ml Output Total 1600 ml 4650 ml Balance -310 ml 1869 ml Intake Oral 500 ml 1975 ml IV Total 790 ml 4544 ml Output Urine Total 1600 ml 4650 ml # Bowel Movements 0 General: Alert, Oriented X3, Cooperative Lungs: Clear to Auscultation, Normal Air Movement Heart: Regular Rate/Rhythm, No Murmurs/Rubs/Gallops Abdomen: Soft, Non-tender, Normoactive bowel tones SURGICAL WOUND : Wound Location/Description Surgical incision over the perineum measuring 4 cm x 1 cm wide, and 3 cm in depth. Open, packing was removed and replaced. No purulent drainage. Wound General Appearence: Open Dressing & Drainage Status: Changed Extremities: Distal Pulses Palpable, Warm Neuro: Grossly Neurologically Intact Catheters: None Result Diagram: 12/29/1652512/29/16525 Lab & Micro Results: WBCs 11.5, with a left shift 85.1% neutrophils Preliminary abscess culture showing gram-negative rods. Assessment & Plan Impression 71-year-old male postop day 1 status post incision and drainage of midline perirectal abscess. He will need daily repacking of his wound for the short term. Preliminary culture shows gram-negative rods. Patient has not used pain medication here in the hospital and should be okay with Tylenol for pain at home if needed. Problems: Plan 1. Patient to follow-up in wound care which will be arranged by Caesar. He will need daily repacking of wound 2. Hospitalist team has consulted infectious disease for antibiotic recommendations. 3. Patient surgically stable to discharge home today with follow-up in wound care and in the surgery clinic with LIZET or Dr. Marti in 2 weeks. Pain Management: By mouth Tylenol and IV Dilaudid available however patient is not needing pain medication. VTE Prophylaxis: SCDs Resuscitation Status: CPR: Attempt Resuscitation Attending Statement: I agree with Dr. Hayes's assessment and plan. Follow-up in Wound Care Clinic. copies to: Raúl Marti MD, Erika R DO Dec 29, 2016 09:31 Raúl Marti MD Jan 02, 2017 08:12
[2016-12-29] MEDS: Vancomycin Inj 1,750 MG in 0.9% Sodium Chloride 500 ML IV SCH (11:08)
[2016-12-29 11:42] VITALS: BP 193/115; PULSE 71; RESP 16; O2SAT 97
--- NOTE | 2016-12-29 11:51 | NUR ---
Wound Note 71 yo male s/p perirectal abscess incision and drainage by Dr Marti on 12/28. Packing is removed from wound to reveal a clean surgical wound 4 cm in length which can be spread to about 2 cm in width and has a depth of 1.5 cm. Drainage is bloody there is no induration noted and I can identify no tunneling or undermining. Wound was cleaned with sterile saline and gauze and then repacked with 1" nugauze and covered with a willie pad. Patient reports that he has no one who can currently change his dressing so arrangements are made for patient to follow up at the wound clinic daily for packing changes. Stable uninfected post operative perirectal wound. Tolerated treatment well.
--- NOTE | 2016-12-29 12:10 | PCM.DIMED ---
Discharge Instructions Date of Service Dec 29, 2016 Dates of Hospitalization Dec 27, 2016 at 18:30 Discharge Diagnosis Discharge Diagnosis Saige-rectal abscess Patient Instructions Follow-up plan follow-up in wound care and in the surgery clinic with PA or Dr. Marti in 2 weeks. Follow-up Provider: Audelia Mora MD Follow-up with PCP in: Other (call) Provider: Raúl Marti MD Follow-up in: 2 weeks Winston Thacker MD Dec 29, 2016 12:10
[2016-12-29 12:11] VITALS: BP 192/98; PULSE 67
[2016-12-29] MEDS ORDERED: LACT1CAP86 PO (12:13)
[2016-12-29] MEDS ORDERED: AMOX-366 PO (12:13)
--- NOTE | 2016-12-29 15:45 | NUR ---
Social Work: Discharge D: EMR reviewed. Pt is on day 2 of hospitalization. Pt confirmed his daughter Yulia Wu will provide transport home via POV when pt is medically stable. SW does not anticipate any discharge needs at this time but will continue to follow if needs arise. A: Pt who is independent at baseline P: Pt confirmed his daughter Yulia Wu will provide transport home via POV today. SW does not anticipate any discharge needs at this time but will continue to follow if needs arise. MELISA Medrano
--- NOTE | 2016-12-29 15:58 | NUR ---
Discharge Orders for discharge were received. The patient was made aware of the plan for discharge and was agreeable to go. The patient was given information and teaching regarding his diagnosis and treatment, signs and symptoms to be aware of, follow up instructions, information on his new medications (scripts sent to patient pharmacy by ), and information regarding his dressing and care needed for the dressing as well as follow up instructions. The patient was also encouraged to follow up regarding his elevated blood pressure, which hospitalist is aware and desires to proceed with discharge. Patient states he "has white coat syndrome, my blood pressure is always elevated in the hospital and my sales forecast analyst knows". The patient signified understanding of this information, and verified understanding using the teach back method. The patient's asymptomatic IV was then removed intact. The patient's belongings were gathered and he was dressed in his own clothing. The patient was then wheeled to the main entrance, where he entered a private vehicle. At the time of discharge the patient was completely alert and oriented, with no recent narcotic use, dizziness, nausea, out of control pain or other difficulty and the surgical dressing clean, dry and intact.
--- NOTE | 2016-12-29 19:10 | PCM.DC.MED ---
Discharge Summary Date of Service Dec 29, 2016 Dates of Hospitalization Date of Hospital Admission Dec 27, 2016 at 18:30 Date of Discharge: Dec 29, 2016 Providers: Admitting Physician: Jessica Nolan MD Primary Care Physician: Audelia Mora MD Attending Physician: Jessica Nolan MD Diagnosis at Time of Discharge Diagnosis at Time of Discharge Saige-rectal abscess Consultations Surgery Alen Marti thank you Procedures XRay, CTs & MRIs PROCEDURE: CT ABDOMEN AND PELVIS WITH CONTRAST ([id number]) INDICATIONS: abscess vs anal fistula TECHNIQUE: After the administration of oral and intravenous contrast, 5 mm thick sections acquired from the diaphragms to the symphysis. 5 mm thick coronal and sagittal reformats were performed. For radiation dose reduction, the following was used : automated exposure control, adjustment of mA and/or kV according to patient size. COMPARISON: [facility], CT, PELVIS W CONTRAST, 08/16/2010, 12: 39. FINDINGS: Image quality: Excellent. ABDOMEN: Lung bases: Lung bases are clear. Heart size is normal. Solid organs: Liver and spleen are normal in size and enhancement. There are 2 cysts in the left lobe of the liver and 2 small areas too small to characterize inferiorly in the right lobe, likely cysts. Gallbladder is within normal limits. Biliary system is non-dilated. Pancreas enhances normally there is a 12 mm right and 10 mm left adrenal nodule.. Kidneys are normal in size and enhancement, without hydronephrosis. Peritoneum and bowel: Stomach, small bowel, and colon loops are normal in caliber and wall thickness. No free fluid or air. Nodes and vessels: No retroperitoneal or mesenteric adenopathy. Aorta and inferior vena cava are normal in caliber. Miscellaneous: No ventral hernias. PELVIS: Genitourinary: Bladder wall thickness is normal. Mild prostate enlargement. Miscellaneous: No inguinal hernias or adenopathy. Just posterior to the rectum in the midline is a fluid collection that appears to be suspicious for potential abscess. It measures 42 x 14 x 40 mm. Bones: No suspicious bony lesions. No vertebral body compression fractures. IMPRESSION: Fluid collection just posterior to the rectum. A perirectal abscess is suspected. Bilateral small adrenal nodules of doubtful significance. Hepatic cysts. Invasive Procedures DATE OF SURGERY: SURGEON: Raúl Marti MD. SALESPERSON MEATS: None. ANESTHESIA: General. PREOPERATIVE DIAGNOSIS(ES): Perirectal abscess. POSTOPERATIVE DIAGNOSIS(ES): Perirectal abscess. PROCEDURE: Examination under anesthesia, incision and drainage of an anterior midline perirectal abscess. INDICATION FOR PROCEDURE: The patient is a 71-year-old male with perianal pain and discomfort for the past week or so. A CT scan yesterday demonstrated findings suggestive of perirectal abscess. PRINCIPAL FINDING: This perirectal abscess was directly anterior midline in the perineal space between the anus and the scrotum. A 4 cm incision was made and copious amount of pus was evacuated. The pus was sent for cultures. The wound was packed open with a wet-to-dry NuGauze. Brief History 79-year-old male with no significant past history, CABG 16 years ago, had full cardiac workup year ago her normal, history of perirectal abscess 5 years ago, patient required I&D, treated with Bactrim. pt presented today with perirectal swelling and pain. Patient went to horseback riding a week ago, since then started having perirectal pain and swelling, progressively worsened. he denied fever, chills at home, denied any changes of bowel habits. Having regular stools, denied bloody or black stools ever. Patient had good appetite no nausea or vomiting. Denied any urinary complaints, no stool incontinence. Patient denied sick contact, MSM. 5yrs ago, etiology was also unclear as to why pt developed abscess ED initial VS [id number], CT showed fluid collection just posterior to the rectum, suspected perirectal abscess. Surgery was consulted attempted bedside aspiration but failed to obtained sample or drainage. Recommended I&D in OR tomorrow Hospital Course 79-year-old male admitted 12/27 with perirectal abscess. Procedure was performed 12/28, patient transitioned over to oral antibiotics and we will follow -up in the surgical clinic in 2 weeks. He will see wound care probably daily for wound packings. I am discharging the patient with a week's worth of Augmentin. #Perirectal abscess, triggered by episode of horseback riding, possibley due to minor skin injury. no SIRS, pt appeared nontoxic -appreciate surgical managemen -s/p clindamycin, flagyl, will continue flagyl q6h and vancomycin, should cover anaerobes, strep, staph, changed over to Augmentin for 5 more days -trend fever curve, awaits X, -MRSA swab all negative - ID consult, follow up with tomorrow deemed unnecessary patient can go out on Augmentin cultures all negative. #HTN, whitecoat per patient -SBP 160-190 but patient will monitor on his own and states that this is not uncommon therefore elected not to treat and he can follow up with PCP -He says it normally runs 120-140 when he measures it at home. #CAD s/p CABG, asymptomatic continue home meds. dvt ppx:SCD Full code Exam Vital Signs (Last) Date Time Temp Pulse Resp B/P Pulse Ox O2 Delivery O2 Flow Rate FiO2 12/29/16 12:11 67 192/98 12/29/16 11:42 36.7 16 97 Room Air 12/28/16 13:13 9 Exam Gen.- A+ O 3 no apparent distress. Obese male lying in bed Eyes- open conjunctiva clear, pupils equal nonicteric Mouth- oral mucosa moist, no exudate ENT- ears normal, nose normal Neck- supple/trach midline CVS-normal rate Lungs-normal rate no accessory muscle GI-generous abdomen Musc- moving 4 no obvious deformity Neuro- cranial nerves II through XII intact to gross examination, nonfocal Skin- warm and dry, no rashes/lesions/wounds noted Psych- pleasant and appropriate, Test 12/27/16 11:25 12/28/16 03:30 12/29/16 04:00 12/29/16 05:26 Lactic Acid Level 1.2mmol/L (0.4-2.0) Procalcitonin 0.05ng/mL (0.00-0.08) Urine Color Yellow (YELLOW) Urine Appearance Clear (CLEAR,HAZY) Urine pH 6.0 (5.0-8.0) Urine Specific [place] 1.015 (1.003-1.035) Urine Protein Negativemg/dL (NEG,TRACE) Urine Glucose (UA) Negativemg/dL (NEGATIVE) Urine Ketones Negativemg/dL (NEGATIVE) Urine Occult Blood Negative (NEGATIVE) Urine Nitrite Negative (NEGATIVE) Urine Bilirubin Negative (NEGATIVE) Urine Urobilinogen 2.0mg/dL (NORMAL) Urine Leukocyte Esterase Negative (NEGATIVE) Urine RBC 0-2/hpf (0-2) Urine WBC 0-5/hpf (0-5) Urine Epithelial Cells Occasional/hpf (NONE-MOD) Urine Crystals None seen (NONE SEEN) Urine Bacteria None/hpf (NONE-FEW) Urine Hyaline Casts None/lpf (NONE) Urine Granular Casts None seen (NONE SEEN) Urine Waxy Casts None seen (NONE SEEN) Urine Red Blood Cell Casts None seen (NONE SEEN) Urine White Blood Cell Casts None seen (NONE SEEN) Urine Mucus None seen (None Seen) Urine Trichomonas None seen (NONE SEEN) Urine Yeast None (NONE SEEN) Urinalysis Comment None Urine Culture Reflexed Not indicated White Blood Count 11.5th/mm3 (3.8-10.1) Red Blood Count 4.81mil/mm3 (4.40-5.80) Hemoglobin 15.4g/dL (13.8-17.2) Hematocrit 44.2% (41.0-50.0) Mean Corpuscular Volume 91.9fL (81-100) Mean Corpuscular Hemoglobin 32.0pg (27.0-35.0) Mean Corpuscular Hemoglobin Concent 34.8% (32.0-37.0) Red Cell Distribution Width 12.4% (12.3-15.4) Platelet Count 233bil/L (150-400) Neutrophils (%) (Auto) 85.1% (40-74) Lymphocytes (%) (Auto) 6.8% (14-46) Monocytes (%) (Auto) 7.7% (4-12) Eosinophils (%) (Auto) 0% (0-5) Basophils (%) (Auto) 0.1% (0-3) Sodium Level 140mEq/L (134-144) Potassium Level 4.6mEq/L (3.5-5.2) Chloride Level 103mEq/L (97-108) Carbon Dioxide Level 24mmol/L (18-29) Blood Urea Nitrogen 14mg/dL (8-27) Creatinine 0.74mg/dL (0.76-1.27) Estimat Glomerular Filtration Rate 111mL/min (>59) Glucose Level 145mg/dL (60-99) Calcium Level 8.9mg/dL (8.5-10.1) Phosphorus Level 4.1mg/dL (2.5-4.9) Magnesium Level 2.1mg/dL (1.6-2.6) Total Bilirubin 0.5mg/dL (0.0-1.2) Aspartate Amino Transf (AST/SGOT) 17U/L (0-50) Alanine Aminotransferase (ALT/SGPT) 25U/L (0-44) Alkaline Phosphatase 75U/L (25-160) Total Protein 5.8g/dL (6.4-8.4) Albumin 3.6g/dL (3.4-5.0) Test 12/29/16 09:35 Vancomycin Level Trough 10.7mcg/mL Microbiology Results Blood culture, wound Gram stain, MRSA swabs all negative Discharge Medications Discharge Medications Amoxicillin/Clav K 875-125 mg (Augmentin 875-125 mg) 1 Each Tablet 1 TABLET PO BID Prescribed by: NORMAN MENDEZ MD Aspirin (Aspirin) 81 Mg Tablet 81 MG PO DAILY (Reported) Atenolol (Atenolol) 25 Mg Tablet 25 MG PO DAILY (Reported) Ezetimibe/Simvastatin 10-40 mg (Vytorin 10-40 mg) 1 Each Tablet 1 TABLET PO DAILY (Reported) Lactobacillus Acidophilus (Acidophilus Lactobacilli) 500 Million Cell Capsule 1 EACH PO DAILY Prescribed by: NORMAN MENDEZ MD Lisinopril (Lisinopril) 40 Mg Tablet 40 MG PO DAILY (Reported) As needed Alprazolam (Xanax) 0.25 Mg Tablet 0.25 MG PO TID PRN PRN For Anxiety (Reported) Followup Plan Disposition: To home follow up in wound clinic and with surgery as documented below. Follow-up plan follow-up in wound care and in the surgery clinic with PA or Dr. Marti in 2 weeks. Follow-up Provider: Audelia Mora MD Follow-up with PCP in: Other (please follow up within the week or documented blood pressure has been addressed I think patient would benefit from ambulatory blood pressure monitoring) Provider: Raúl Marti MD Follow-up in: 2 weeks Time spent Greater than 30 minutes Attending Statement Consider ambulatory blood pressure monitoring for this patient copies to: Audelia Mora MD, Andris E MD Dec 29, 2016 19:10
== END 2016-12-29 14:50 | disposition home or self-care (01) | DRG 395 ==
LOC: SED 10:19 → OSC 18:30 → OBSVTOIN 18:30 → OSC 19:12
PROVIDERS: ADMIT Internal Medicine; ATTEND Internal Medicine
PROC: 0J9B3ZZ Drainage of Perineum Subcutaneous Tissue and Fascia, Percutaneous Approach (ICD-10-PCS; principal; 2016-12-27)
PROC: 0J9B3ZX Drainage of Perineum Subcutaneous Tissue and Fascia, Percutaneous Approach, Diagnostic (ICD-10-PCS; 2016-12-28)
DX: K61.2 Anorectal abscess (principal); Z95.1 Presence of aortocoronary bypass graft; Y93.52 Activity, horseback riding